=== PATIENT | male | born 1995 | race Caucasian/White ===

== ENCOUNTER 2019-08-28 14:20 | Emergency (ER) | payer OTHER | END 2019-08-28 15:17 | disposition home or self-care (01) | LOC: EDH 14:20 | DX: R00.0 Tachycardia, unspecified (principal); M72.0 Palmar fascial fibromatosis [Dupuytren] | CPT/HCPCS: 93005 ==

== ENCOUNTER 2019-12-16 23:17 | Emergency (ER) | payer OTHER ==
[2019-12-16] MEDS ORDERED: KETOROLAC TROMETHAMINE 30MG/ML ONE (23:44)
[2019-12-16] MEDS ORDERED: SODIUM CHLORIDE 0.9% 1000ML 1,000 ML IV ONE (23:44)
[2019-12-16] MEDS ORDERED: IOHEXOL 350 MG/ML 100ML INFUS..BTL IV ONE (23:48)
[2019-12-16 23:50] LABS: BASOPHILS % (AUTO) 0.7 % (0.0-5.0); HEMATOCRIT 44.3 % (42-54); LYMPHOCYTES % (AUTO) 23.9 % (21.0-51.0); MEAN CORPUSCULAR HEMOGLOBIN 29.1 pg (27.0-33.0); MEAN CORPUSCULAR HGB CONC 33.6 g/dL (32.0-36.0); MEAN CORPUSCULAR VOLUME 86.5 fL (79-99); MONOCYTES % (AUTO) 7.3 % (3.0-13.0); NEUTROPHILS % (AUTO) 66.9 % (40.0-77.0); PLATELET COUNT (AUTO) 214 K/uL (130-400); RED BLOOD CELL COUNT(AUTO) 5.12 MIL/uL (4.50-6.20); RED CELL DISTRIBUTION WIDTH 13.5 % (11.0-15.5); WHITE BLOOD COUNT (AUTO) 9.8 K/uL (4.8-10.8)
[2019-12-17 00:07] LABS: CREATININE 1.2 mg/dL (0.5-1.5); POTASSIUM 3.4 mmol/L (3.5-5.1)
[2019-12-17 00:12] LABS: ALBUMIN 4.1 g/dL (3.5-5.0); BILIRUBIN,TOTAL 0.7 mg/dL (0.2-1.0); TOTAL PROTEIN, SERUM 7.3 g/dL (6.0-8.3)
[2019-12-17 00:40] LABS: APPEARANCE,URINE Clear (CLEAR); BILIRUBIN,URINE Negative (NEGATIVE); COLOR,URINE Yellow (YELLOW); GLUCOSE, URINE (UA) Negative (NEGATIVE); KETONES,URINE Negative (NEGATIVE); LEUKOCYTE ESTERASE ,URINE Negative (NEGATIVE); NITRATE,URINE Negative (NEGATIVE); OCCULT BLOOD,URINE Negative (NEGATIVE); PROTEIN,URINE Negative (NEGATIVE)
[2019-12-17] MEDS ORDERED: HYDROCODONE/ACETAMINOPHEN 10/325 MG TAB ONE (01:24)
== END 2019-12-17 06:50 | disposition home or self-care (01) ==
LOC: EDH 23:17
DX: S20.211A Contusion of right front wall of thorax, initial encounter (principal); S00.83XA Contusion of other part of head, initial encounter; S39.91XA Unspecified injury of abdomen, initial encounter; Z72.0 Tobacco use; Y04.2XXA Assault by strike against or bumped into by another person, initial encounter; Y93.89 Activity, other specified; Y92.098 Other place in other non-institutional residence as the place of occurrence of the external cause; Y99.8 Other external cause status
CPT/HCPCS: 36415; 71260; 74177; 80053; 81003; 85025; 96374; 99285; J1885; J7030; Q9967

== ENCOUNTER 2019-12-18 21:48 | Emergency (ER) | payer OTHER ==
[2019-12-18] MEDS ORDERED: KETOROLAC TROMETHAMINE 60 MG/2 ML VIAL ONE (23:17)
== END 2019-12-18 23:40 | disposition home or self-care (01) ==
LOC: EDH 21:48
DX: R07.81 Pleurodynia (principal)
CPT/HCPCS: 71101; 96372; 99283; J1885

== ENCOUNTER 2019-12-21 10:45 | Emergency (ER) | payer OTHER | END 2019-12-21 11:34 | disposition home or self-care (01) | LOC: EDH 10:45 | DX: R07.81 Pleurodynia (principal) | CPT/HCPCS: 99281 ==

== ENCOUNTER 2021-11-04 22:39 | Emergency (ER) | payer OTHER ==
[~2021-11-04] VITALS: Ht 172.7 cm; Wt 77.1 kg
[2021-11-04] MEDS ORDERED: HYDROCODONE/ACETAMINOPHEN 10/325 MG TAB PO ONE (23:30)
[2021-11-04] MEDS ORDERED: KETOROLAC 60 MG VIAL (30MG/ML) IM ONE (23:30)
[2021-11-04] MEDS ORDERED: IBUP-1552 PO (23:46)
[2021-11-05 00:21] VITALS: BP 138/69
== END 2021-11-05 00:23 | disposition home or self-care (01) ==
LOC: EDH 22:39
DX: G89.18 Other acute postprocedural pain (principal); M25.551 Pain in right hip
CPT/HCPCS: 73552; 99283; J1885

== ENCOUNTER 2021-11-25 01:27 | Emergency (ER) | payer OTHER ==
[~2021-11-25 01:27] MED LIST: IBUP-1552 PO
[2021-11-26] MEDS ORDERED: DICL50TA9 PO (01:06)
== END 2021-11-25 04:03 | disposition left against medical advice (07) ==
LOC: EDH 01:27
DX: M25.551 Pain in right hip (principal); Z53.21 Procedure and treatment not carried out due to patient leaving prior to being seen by health care provider

== ENCOUNTER 2021-11-25 07:01 | Emergency (ER) | payer OTHER ==
[~2021-11-25] VITALS: Ht 165.1 cm; Wt 79.4 kg
[2021-11-25 07:03] VITALS: BP 119/60
[2021-11-26] MEDS ORDERED: DICL50TA9 PO (01:06)
== END 2021-11-25 08:54 | disposition left against medical advice (07) ==
LOC: EDH 07:01
DX: M25.551 Pain in right hip (principal); G89.29 Other chronic pain; Z59.00 Homelessness unspecified; Z79.1 Long term (current) use of non-steroidal anti-inflammatories (NSAID)
CPT/HCPCS: 99281

== ENCOUNTER 2021-11-25 23:00 | Emergency (ER) | payer OTHER ==
[~2021-11-25] VITALS: Ht 172.7 cm; Wt 72.6 kg
[2021-11-26] MEDS ORDERED: DICL50TA9 PO (01:06)
[2021-11-26 01:08] VITALS: BP 124/72
== END 2021-11-26 01:13 | disposition home or self-care (01) ==
LOC: EDH 23:00
DX: M25.551 Pain in right hip (principal); Z79.1 Long term (current) use of non-steroidal anti-inflammatories (NSAID); Z79.899 Other long term (current) drug therapy
CPT/HCPCS: 73502

== ENCOUNTER 2022-05-31 20:39 | Emergency (ER) | payer OTHER ==
[~2022-05-31] VITALS: Ht 172.7 cm; Wt 67.1 kg
[~2022-05-31 20:39] MED LIST changes: +DICL50TA9 PO
[2022-05-31 20:41] VITALS: BP 136/88
== END 2022-05-31 21:06 | disposition home or self-care (01) ==
LOC: EDH 20:39
DX: B07.9 Viral wart, unspecified (principal); Z79.1 Long term (current) use of non-steroidal anti-inflammatories (NSAID)
CPT/HCPCS: 99281